=== PATIENT | female | born 1945 | race Caucasian/White ===

== ENCOUNTER 2016-08-04 21:32 | Emergency (ER) | payer OTHER ==
[~2016-08-04] VITALS: Ht 157.5 cm; Wt 45.4 kg
[2016-08-04 22:42] LABS: Basophils # (auto) 0 uL; Basophils % (auto) 0.3 % (0.0-2.0); CONDITION AutoValidated; DEFINITIVE SEE PRINTOUT; Eosinophils # (auto) 0 uL; Eosinophils % (auto) 0.1 % (0.0-7.0); Hemoglobin 14.1 g/dL (12.2-16.2); Lymphocytes # (auto) 1.2 uL; Lymphocytes % (auto) 11.5 % (10.0-50.0); Mean Corpuscular Hemoglobin 36.4 pg (28.0-32.0); Mean Corpuscular Hgb Conc. 35.3 g/dL (32.0-36.0); Mean Corpuscular Volume 103.2 fL (80.0-100.0); Monocytes # (auto) 0.4 uL; Monocytes % (auto) 3.6 % (0.0-12.0); Neutrophils # (auto) 9.1 uL; Neutrophils % (auto) 84.5 % (37.0-80.0); Platelet Count (auto) 265 10^3/uL (140-450); Red Cell Distribution Width 13.4 % (11.6-16.0); White Blood Cell 10.7 10^3/uL (4.4-10.8)
[2016-08-04 23:03] LABS: Albumin 3.4 g/dL (3.4-5.0); BUN/Creatinine Ratio 11.3; Calcium 7.9 mg/dL (8.5-10.1)
[2016-08-04 23:05] LABS: Bilirubin, Total 0.4 mg/dL (0.2-1.0); Total Protein 6.9 g/dL (6.4-8.2)
[2016-08-05 04:54] VITALS: BP 135/76
[2016-08-05] MEDS ORDERED: ACE3T PO (05:21)
== END 2016-08-05 05:37 | disposition home or self-care (01) ==
LOC: ER 21:36
DX: S76.011A Strain of muscle, fascia and tendon of right hip, initial encounter (principal); F17.210 Nicotine dependence, cigarettes, uncomplicated; W01.0XXA Fall on same level from slipping, tripping and stumbling without subsequent striking against object, initial encounter; Y93.89 Activity, other specified; Y92.89 Other specified places as the place of occurrence of the external cause; Y99.8 Other external cause status
CPT/HCPCS: 36415; 73502; 80053; 85025; 93005

== ENCOUNTER → 2017-04-03 | Outpatient (CLI) | payer OTHER ==
[~2017-04-03] MED LIST: ACE3T PO
[2017-04-03 09:20] LABS: Urine WBC None Seen /hpf (0 - 5)
[2017-04-03 09:28] LABS: Basophils # (auto) 0 uL; Eosinophils # (auto) 0 uL; Eosinophils % (auto) 0.5 % (0.0-7.0); Lymphocytes # (auto) 2.3 uL; Monocytes # (auto) 0.8 uL; Nucleated Red Blood Cells % 0.1 %; Platelet Count (auto) 253 10^3/uL (140-450); Red Blood Cells 4.76 10^6/uL (4.0-5.20); Red Cell Distribution Width 14.1 % (11.8-14.3); White Blood Cell 7.9 10^3/uL (4.4-10.8)
[2017-04-03 09:31] LABS: Basophils % (auto) 0.6 % (0.0-2.0); Hematocrit 46.6 % (36.0-46.0); Hemoglobin 16.2 g/dL (12.2-16.2); Lymphocytes % (auto) 28.7 % (10.0-50.0); Mean Corpuscular Hgb Conc. 34.8 g/dL (32.0-36.0); Mean Corpuscular Volume 97.8 fL (80.0-100.0); Neutrophils # (auto) 4.8 uL; Neutrophils % (auto) 60.2 % (37.0-80.0)
[2017-04-03 09:35] LABS: Urine Bacteria FEW /hpf (None Seen); Urine Blood TRACE /uL (Negative); Urine Specific Gravity 1.002 (1.001-1.035)
[2017-04-03 09:58] LABS: Albumin 4.3 g/dL (3.4-5.0); BUN/Creatinine Ratio 11.8; Calcium 9.4 mg/dL (8.5-10.1); Potassium 3.6 mmol/L (3.5-5.1)
[2017-04-03 10:12] LABS: Bilirubin, Total 0.4 mg/dL (0.2-1.0); Total Protein 8.2 g/dL (6.4-8.2)
== END | disposition home or self-care (01) ==
LOC: LAB 08:54
PROVIDERS: ATTEND Nurse Practitioner
DX: E78.5 Hyperlipidemia, unspecified (principal)
CPT/HCPCS: 36415; 80053; 80061; 81001; 82306; 83036; 84443; 85025

== ENCOUNTER 2019-04-22 04:05 | Inpatient (IN) | payer OTHER ==
[~2019-04-22] VITALS: Ht 152.4 cm; Wt 89.4 kg
[2019-04-22] MEDS ORDERED: MORPHINE SULFATE 4 MG/ML SYR/VIAL IV ONE ×2 (05:00→10:00)
[2019-04-22] MEDS ORDERED: ONDANSETRON HCL 4 MG/2 ML VIAL IV ONE ×2 (05:00→10:00)
[2019-04-22 06:38] LABS: Basophils # (auto) 0 10 ^3/uL (0-0.2); Basophils % (auto) 0.4 % (0.0-2.0); Eosinophils # (auto) 0 10 ^3/uL (0-0.8); Eosinophils % (auto) 0.1 % (0.0-7.0); Hematocrit 42.1 % (36.0-46.0); Hemoglobin 14.7 g/dL (12.2-16.2); Lymphocytes # (auto) 0.6 10 ^3/uL (0.4-5.4); Lymphocytes % (auto) 6.6 % (10.0-50.0); Mean Corpuscular Hemoglobin 34.6 pg (28.0-32.0); Mean Corpuscular Hgb Conc. 34.9 g/dL (32.0-36.0); Mean Corpuscular Volume 99.2 fL (80.0-100.0); Monocytes # (auto) 0.6 10 ^3/uL (0-1.3); Monocytes % (auto) 5.8 % (0.0-12.0); Neutrophils # (auto) 8.6 10 ^3/uL (1.6-8.6); Neutrophils % (auto) 87.1 % (37.0-80.0); Platelet Count (auto) 183 10^3/uL (140-450); Red Blood Cells 4.24 10^6/uL (4.0-5.20); Red Cell Distribution Width 13.8 % (11.8-14.3); White Blood Cell 9.9 10^3/uL (4.4-10.8)
[2019-04-22 06:57] LABS: Calcium 8.7 mg/dL (8.5-10.1); Potassium 4.2 mmol/L (3.5-5.1)
[2019-04-22 07:03] LABS: Albumin 3.5 g/dL (3.4-5.0); BUN/Creatinine Ratio 9.8; Bilirubin, Total 0.5 mg/dL (0.2-1.0); Total Protein 7.5 g/dL (6.4-8.2)
[2019-04-22 07:36] LABS: Urine Bacteria FEW /hpf (None Seen); Urine Blood Negative /uL (Negative); Urine Specific Gravity 1.005 (1.001-1.035); Urine WBC 6 /hpf (0 - 5)
[2019-04-22 07:39] LABS: Magnesium 1.9 mg/dL (1.6-2.6)
[2019-04-22 07:49] LABS: INR 0.98 (0.9-1.15); Partial Thromboplastin Time 25.4 sec (23.64-32.05)
[2019-04-22] MEDS ORDERED: SODIUM CHLORIDE 0.9% 1,000 ML IV ONE (07:56)
[2019-04-22] MEDS ORDERED: IOHEXOL 350 MG/ML 100ML IJ ONE (10:14)
[2019-04-22] MEDS ORDERED: cefTRIAXone 1GM/50ML D5W 50 ML IV ONE ×2 (10:15→11:45)
[2019-04-22] MEDS ORDERED: ACETAMINOPHEN 500 MG TAB PO PRN (11:45)
[2019-04-22] MEDS ORDERED: NITROGLYCERIN 0.4 MG SL TAB SL PRN (11:45)
[2019-04-22] MEDS ORDERED: MORPHINE SULF INJ 2 MG/ML SYRINGE 1ML IV PRN ×2 (11:45)
[2019-04-22] MEDS ORDERED: LACTULOSE 20Gm/30ML SOLN PO PRN (11:45)
[2019-04-22] MEDS ORDERED: TEMAZEPAM 15 MG CAP PO PRN (11:45)
[2019-04-22] MEDS: SODIUM CHLORIDE 0.9% 1,000 ML IV SCH ×2 (12:46→22:06)
[2019-04-22 14:09] VITALS: BP 142/69
[2019-04-22 14:17] VITALS: BP 142/69
[2019-04-22] MEDS: MORPHINE SULF INJ 2 MG/ML SYRINGE 1ML IV PRN ×3 (14:47→22:44)
[2019-04-22] MEDS: ONDANSETRON HCL 4 MG/2 ML VIAL IV PRN ×3 (14:48→22:44)
[2019-04-22 17:04] VITALS: BP 157/69
[2019-04-22] MEDS ORDERED: cloNIDine HCL 0.1 MG TAB PO PRN (17:15)
[2019-04-22] MEDS ORDERED: MAGNESIUM OXIDE 400 MG TAB PO ONE (17:15)
[2019-04-22 22:00] VITALS: BP 134/63
[2019-04-22] MEDS: FAMOTIDINE 20 MG TAB PO SCH (22:02)
[2019-04-23] VITALS (7 sets, daily range): BP systolic 99–133; BP diastolic 53–71
[2019-04-23] MEDS: MORPHINE SULF INJ 2 MG/ML SYRINGE 1ML IV PRN ×4 (04:53→22:31)
[2019-04-23] MEDS: ONDANSETRON HCL 4 MG/2 ML VIAL IV PRN (04:53)
[2019-04-23] MEDS: SODIUM CHLORIDE 0.9% 1,000 ML IV SCH ×2 (07:34→17:34)
[2019-04-23] MEDS: cefTRIAXone 1GM/50ML D5W 50 ML IV SCH (09:23)
[2019-04-23] MEDS: LISINOPRIL 20 MG TAB PO SCH (09:24)
[2019-04-23 11:03] LABS: Basophils # (auto) 0 10 ^3/uL (0-0.2); Basophils % (auto) 0.4 % (0.0-2.0); Eosinophils # (auto) 0 10 ^3/uL (0-0.8); Eosinophils % (auto) 0.5 % (0.0-7.0); Hematocrit 41.1 % (36.0-46.0); Lymphocytes # (auto) 0.8 10 ^3/uL (0.4-5.4); Lymphocytes % (auto) 10.7 % (10.0-50.0); Mean Corpuscular Hemoglobin 34.2 pg (28.0-32.0); Mean Corpuscular Hgb Conc. 34.1 g/dL (32.0-36.0); Mean Corpuscular Volume 100.3 fL (80.0-100.0); Monocytes # (auto) 0.5 10 ^3/uL (0-1.3); Monocytes % (auto) 5.8 % (0.0-12.0); Neutrophils # (auto) 6.5 10 ^3/uL (1.6-8.6); Neutrophils % (auto) 82.6 % (37.0-80.0); Platelet Count (auto) 158 10^3/uL (140-450); White Blood Cell 7.9 10^3/uL (4.4-10.8)
[2019-04-23 11:17] LABS: Albumin 2.9 g/dL (3.4-5.0); Calcium 8.8 mg/dL (8.5-10.1); Magnesium 2.2 mg/dL (1.6-2.6); Potassium 3.9 mmol/L (3.5-5.1)
[2019-04-23 11:20] LABS: BUN/Creatinine Ratio 10.9; Bilirubin, Total 0.5 mg/dL (0.2-1.0)
[2019-04-23 11:26] LABS: Free T4 (Free Thyroxine) 1.11 ng/dL (0.89-1.76)
[2019-04-23 11:27] LABS: Folate (Folic Acid) 8.83 ng/mL (5.38-24)
[2019-04-23] MEDS ORDERED: CYANOCOBALAMIN 500 MCG TAB PO ONE (15:00)
[2019-04-23] MEDS: ALBUTEROL SULF 2.5 MG/0.5ML(0.5%) NEB SOLN NEB SCH (19:30)
[2019-04-23] MEDS: IPRATROPIUM BROM 0.5 MG/2.5ML INH SOL NEB SCH (19:30)
[2019-04-23] MEDS: FAMOTIDINE 20 MG TAB PO SCH (22:00)
[2019-04-24] MEDS: SODIUM CHLORIDE 0.9% 1,000 ML IV SCH ×2 (02:23→16:26)
[2019-04-24] MEDS: MORPHINE SULF INJ 2 MG/ML SYRINGE 1ML IV PRN ×2 (04:31→10:06)
[2019-04-24 05:00] VITALS: BP 134/70
[2019-04-24] MEDS: ALBUTEROL SULF 2.5 MG/0.5ML(0.5%) NEB SOLN NEB SCH ×4 (06:29→18:24)
[2019-04-24] MEDS: IPRATROPIUM BROM 0.5 MG/2.5ML INH SOL NEB SCH ×4 (06:29→18:25)
[2019-04-24 07:06] LABS: RPR Non Reactive (Non Reactive)
[2019-04-24 09:00] VITALS: BP 135/74
[2019-04-24] MEDS: cefTRIAXone 1GM/50ML D5W 50 ML IV SCH (09:54)
[2019-04-24] MEDS: CYANOCOBALAMIN 500 MCG TAB PO SCH (09:54)
[2019-04-24] MEDS: LISINOPRIL 20 MG TAB PO SCH (09:55)
[2019-04-24] MEDS ORDERED: ENOXAPARIN SOD 40 MG/0.4 ML SYRINGE SC SCH (10:00)
[2019-04-24 13:00] VITALS: BP 130/72
[2019-04-24 17:00] VITALS: BP 155/84
[2019-04-24] MEDS: NICOTINE 7MG/24HR TOPICAL PATCH TD SCH (17:10)
[2019-04-24 22:00] VITALS: BP 143/82
[2019-04-24] MEDS: FAMOTIDINE 20 MG TAB PO SCH (22:00)
[2019-04-25] MEDS: IPRATROPIUM BROM 0.5 MG/2.5ML INH SOL NEB SCH ×5 (00:12→19:01)
[2019-04-25] MEDS: ALBUTEROL SULF 2.5 MG/0.5ML(0.5%) NEB SOLN NEB SCH ×5 (00:12→19:01)
[2019-04-25] MEDS: SODIUM CHLORIDE 0.9% 1,000 ML IV SCH ×2 (00:43→08:50)
[2019-04-25] MEDS: MORPHINE SULF INJ 2 MG/ML SYRINGE 1ML IV PRN (00:44)
[2019-04-25 02:00] VITALS: BP 150/72
[2019-04-25 05:00] VITALS: BP 143/75
[2019-04-25] MEDS ORDERED: BUPIVACAINE 0.25% INJ 50ML VIAL ONE (07:52)
[2019-04-25] MEDS ORDERED: BUPIVACAINE W/ EPINEPH 0.5% MPF 30ML VIAL IJ ONE (07:52)
[2019-04-25] MEDS ORDERED: TRANEXAMIC ACID 20 ML ONE (07:52)
[2019-04-25 08:00] VITALS: BP 147/78
[2019-04-25] MEDS ORDERED: KETOROLAC TROMETH 30 MG/ML 1ML VIAL ONE (08:13)
[2019-04-25] MEDS ORDERED: MORPHINE SULF(PF) 0.5MG/ML 10ML VIAL ONE (08:13)
[2019-04-25 08:26] VITALS: BP 147/78
[2019-04-25] MEDS ORDERED: VANCOMYCIN HCL 1000 MG VL ONE (08:33)
[2019-04-25] MEDS: cefTRIAXone 1GM/50ML D5W 50 ML IV SCH (08:50)
[2019-04-25] MEDS ORDERED: ceFAZolin 1GM/50ML 100 ML IV ONE (08:53)
[2019-04-25] MEDS: CYANOCOBALAMIN 500 MCG TAB PO SCH (09:07)
[2019-04-25] MEDS: LISINOPRIL 20 MG TAB PO SCH (09:07)
[2019-04-25] MEDS: NICOTINE 7MG/24HR TOPICAL PATCH TD SCH (09:08)
[2019-04-25] MEDS ORDERED: fentaNYL CITRATE 100 MCG/2 ML VL ONE (09:24)
[2019-04-25] MEDS ORDERED: MEPERIDINE HCL (50 MG/ML) 1 ML VIAL ONE (09:25)
[2019-04-25] MEDS ORDERED: MIDAZOLAM HCL 1MG/1ML-2 ML VIAL ONE (09:25)
[2019-04-25] MEDS ORDERED: DexAMETHasone SOD PHOS 10MG/1ML VIAL INJ ONE (09:53)
[2019-04-25] MEDS ORDERED: PROPOFOL 10 MG/ML 20 ML IV ONE (09:59)
[2019-04-25] MEDS ORDERED: HYDROmorphone HCL 2 MG/ML VL IV PRN (10:45)
[2019-04-25] MEDS ORDERED: MORPHINE SULFATE 4 MG/ML SYR/VIAL IV PRN (10:45)
[2019-04-25] MEDS ORDERED: MIDAZOLAM HCL 1MG/1ML-2 ML VIAL IV PRN (10:45)
[2019-04-25] MEDS ORDERED: ONDANSETRON HCL 4 MG/2 ML VIAL IV PRN (10:45)
[2019-04-25] MEDS ORDERED: ePHEDrine SULFATE 50 MG/ML AMP IV PRN (10:45)
[2019-04-25] MEDS ORDERED: LABETALOL HCL 5 MG/ML 4ML SYRINGE IV PRN (10:45)
[2019-04-25] MEDS: LACTATED RINGER'S 1,000 ML IV SCH ×2 (11:08→17:35)
[2019-04-25] MEDS: ceFAZolin 1GM/50ML 50 ML IV SCH ×3 (11:15→23:22)
[2019-04-25] MEDS ORDERED: ALBUTEROL SULF 2.5 MG/0.5ML(0.5%) NEB SOLN NEB ONE (11:45)
[2019-04-25] MEDS ORDERED: IPRATROPIUM BROM 0.5 MG/2.5ML INH SOL NEB ONE (11:45)
[2019-04-25] MEDS: Ensure HIGH Protein Chocolate 8oz Bottle PO SCH ×2 (12:00→17:36)
[2019-04-25] MEDS: SODIUM CHLOR 0.9% PF (SALINE LOCK) 10ML VIAL/SYR IV SCH ×2 (15:30→21:37)
[2019-04-25 17:17] VITALS: BP 119/68
[2019-04-25] MEDS: FAMOTIDINE 20 MG TAB PO SCH (21:37)
[2019-04-25 22:00] VITALS: BP 131/74
[2019-04-26] VITALS (7 sets, daily range): BP systolic 112–164; BP diastolic 61–84
[2019-04-26] MEDS: IPRATROPIUM BROM 0.5 MG/2.5ML INH SOL NEB SCH ×4 (01:01→18:39)
[2019-04-26] MEDS: ALBUTEROL SULF 2.5 MG/0.5ML(0.5%) NEB SOLN NEB SCH ×4 (01:01→18:39)
[2019-04-26 06:09] LABS: Hemoglobin 12.1 g/dL (12.2-16.2)
[2019-04-26 06:17] LABS: Albumin 2.5 g/dL (3.4-5.0); Calcium 8.8 mg/dL (8.5-10.1); Potassium 3.5 mmol/L (3.5-5.1)
[2019-04-26 06:21] LABS: Bilirubin, Total 0.3 mg/dL (0.2-1.0); Total Protein 6.2 g/dL (6.4-8.2)
[2019-04-26] MEDS: SODIUM CHLOR 0.9% PF (SALINE LOCK) 10ML VIAL/SYR IV SCH ×3 (06:21→22:36)
[2019-04-26] MEDS: Ensure HIGH Protein Chocolate 8oz Bottle PO SCH ×3 (08:45→17:44)
[2019-04-26] MEDS: cefTRIAXone 1GM/50ML D5W 50 ML IV SCH (08:45)
[2019-04-26] MEDS: MORPHINE SULF INJ 2 MG/ML SYRINGE 1ML IV PRN ×4 (08:46→22:37)
[2019-04-26] MEDS: ENOXAPARIN SOD 40 MG/0.4 ML SYRINGE SC SCH (10:06)
[2019-04-26] MEDS: LISINOPRIL 20 MG TAB PO SCH (10:06)
[2019-04-26] MEDS: CYANOCOBALAMIN 500 MCG TAB PO SCH (10:07)
[2019-04-26] MEDS: NICOTINE 7MG/24HR TOPICAL PATCH TD SCH (10:08)
[2019-04-26] MEDS: FAMOTIDINE 20 MG TAB PO SCH (22:36)
[2019-04-27] VITALS (7 sets, daily range): BP systolic 123–147; BP diastolic 57–83
[2019-04-27] MEDS: IPRATROPIUM BROM 0.5 MG/2.5ML INH SOL NEB SCH ×4 (00:15→18:18)
[2019-04-27] MEDS: ALBUTEROL SULF 2.5 MG/0.5ML(0.5%) NEB SOLN NEB SCH ×4 (00:15→18:18)
[2019-04-27] MEDS: SODIUM CHLOR 0.9% PF (SALINE LOCK) 10ML VIAL/SYR IV SCH ×3 (05:44→21:48)
[2019-04-27 07:44] LABS: Hematocrit 37.1 % (36.0-46.0); Hemoglobin 12.8 g/dL (12.2-16.2)
[2019-04-27] MEDS: Ensure HIGH Protein Chocolate 8oz Bottle PO SCH ×3 (08:15→17:37)
[2019-04-27] MEDS: cefTRIAXone 1GM/50ML D5W 50 ML IV SCH (08:34)
[2019-04-27] MEDS: CYANOCOBALAMIN 500 MCG TAB PO SCH (09:25)
[2019-04-27] MEDS: LISINOPRIL 20 MG TAB PO SCH (09:26)
[2019-04-27] MEDS: ENOXAPARIN SOD 40 MG/0.4 ML SYRINGE SC SCH (09:27)
[2019-04-27] MEDS: NICOTINE 7MG/24HR TOPICAL PATCH TD SCH (09:32)
[2019-04-27] MEDS: MORPHINE SULF INJ 2 MG/ML SYRINGE 1ML IV PRN (09:32)
[2019-04-27] MEDS: CHOLECALCIFEROL (VITD3) 1,000IU=25mCg TAB PO SCH (18:26)
[2019-04-27] MEDS: FAMOTIDINE 20 MG TAB PO SCH (21:48)
[2019-04-28 05:01] VITALS: BP 113/68
[2019-04-28] MEDS: IPRATROPIUM BROM 0.5 MG/2.5ML INH SOL NEB SCH ×6 (06:00→23:47)
[2019-04-28] MEDS: ALBUTEROL SULF 2.5 MG/0.5ML(0.5%) NEB SOLN NEB SCH ×6 (06:00→23:47)
[2019-04-28] MEDS: SODIUM CHLOR 0.9% PF (SALINE LOCK) 10ML VIAL/SYR IV SCH ×3 (06:06→22:57)
[2019-04-28 06:13] LABS: Hematocrit 33.9 % (36.0-46.0); Hemoglobin 11.8 g/dL (12.2-16.2)
[2019-04-28 08:16] VITALS: BP 138/69
[2019-04-28 09:00] VITALS: BP 138/69
[2019-04-28] MEDS: cefTRIAXone 1GM/50ML D5W 50 ML IV SCH (09:16)
[2019-04-28] MEDS: CHOLECALCIFEROL (VITD3) 1,000IU=25mCg TAB PO SCH (09:16)
[2019-04-28] MEDS: CYANOCOBALAMIN 500 MCG TAB PO SCH (09:16)
[2019-04-28] MEDS: LISINOPRIL 20 MG TAB PO SCH (09:17)
[2019-04-28] MEDS: ENOXAPARIN SOD 40 MG/0.4 ML SYRINGE SC SCH (09:17)
[2019-04-28] MEDS: Ensure HIGH Protein Chocolate 8oz Bottle PO SCH ×3 (09:18→17:53)
[2019-04-28] MEDS: NICOTINE 7MG/24HR TOPICAL PATCH TD SCH (09:22)
[2019-04-28 12:51] VITALS: BP 143/77
[2019-04-28 17:00] VITALS: BP 146/77
[2019-04-28 21:39] VITALS: BP 130/70
[2019-04-28] MEDS: FAMOTIDINE 20 MG TAB PO SCH (22:56)
[2019-04-29 04:52] VITALS: BP 148/72
[2019-04-29] MEDS: SODIUM CHLOR 0.9% PF (SALINE LOCK) 10ML VIAL/SYR IV SCH (06:17)
[2019-04-29] MEDS: IPRATROPIUM BROM 0.5 MG/2.5ML INH SOL NEB SCH ×2 (07:22→13:29)
[2019-04-29] MEDS: ALBUTEROL SULF 2.5 MG/0.5ML(0.5%) NEB SOLN NEB SCH ×2 (07:22→13:29)
[2019-04-29 08:38] VITALS: BP 148/72
[2019-04-29 09:00] VITALS: BP 142/72
[2019-04-29] MEDS: cefTRIAXone 1GM/50ML D5W 50 ML IV SCH (09:00)
[2019-04-29] MEDS: CYANOCOBALAMIN 500 MCG TAB PO SCH (10:13)
[2019-04-29] MEDS: ENOXAPARIN SOD 40 MG/0.4 ML SYRINGE SC SCH (10:13)
[2019-04-29] MEDS: CHOLECALCIFEROL (VITD3) 1,000IU=25mCg TAB PO SCH (10:13)
[2019-04-29] MEDS: LISINOPRIL 20 MG TAB PO SCH (10:14)
[2019-04-29] MEDS: NICOTINE 7MG/24HR TOPICAL PATCH TD SCH (10:14)
[2019-04-29 13:00] VITALS: BP 133/49
[2019-04-29 14:38] VITALS: BP 142/72
== END 2019-04-29 15:50 | disposition home health service (06) | DRG 470 ==
LOC: EDBD 04:05 → ER 04:11 → TELE 04:12 → TELE-WESTW 14:57
PROVIDERS: ADMIT Internal Medicine; ATTEND Internal Medicine
PROC: 0SRR0JZ Replacement of Right Hip Joint, Femoral Surface with Synthetic Substitute, Open Approach (ICD-10-PCS; principal; 2019-04-25 09:18)
DX: S72.091A Other fracture of head and neck of right femur, initial encounter for closed fracture (principal); E87.1 Hypo-osmolality and hyponatremia; N39.0 Urinary tract infection, site not specified; W01.0XXA Fall on same level from slipping, tripping and stumbling without subsequent striking against object, initial encounter; J43.9 Emphysema, unspecified; I10 Essential (primary) hypertension; F17.210 Nicotine dependence, cigarettes, uncomplicated; Y93.01 Activity, walking, marching and hiking; M81.0 Age-related osteoporosis without current pathological fracture; Z86.011 Personal history of benign neoplasm of the brain; Z90.710 Acquired absence of both cervix and uterus; Z88.8 Allergy status to other drugs, medicaments and biological substances; Y92.098 Other place in other non-institutional residence as the place of occurrence of the external cause; Y99.8 Other external cause status
CPT/HCPCS: 36415; 70450; 71045; 71275; 72170; 72192; 73501; 73502; 80053; 81001; 82607; 82746; 83036; 83735; 84439; 84443; 84484; 85014; 85018; 85025; 85379; 85610; 85730; 86592; 86850; 86900; 86901; 87086; 93005; 93306; 94640; 96365; 96375; 96376; 97116; 97163; 97530; A4565; C1776; G0378; J0690; J0696; J1100; J1885; J2250; J2405; J2704; J3490

== ENCOUNTER 2019-10-21 10:58 | Emergency (ER) | payer OTHER ==
[~2019-10-21] VITALS: Ht 157.5 cm; Wt 43.5 kg
[2019-10-21 11:24] VITALS: BP 104/47
== END 2019-10-21 12:15 | disposition home or self-care (01) ==
LOC: ER 10:58
DX: Z48.01 Encounter for change or removal of surgical wound dressing (principal); F17.210 Nicotine dependence, cigarettes, uncomplicated

== ENCOUNTER → 2020-05-26 | Outpatient (CLI) | payer OTHER ==
[2020-05-26 11:41] LABS: Urine Bacteria MOD /hpf (None Seen); Urine Blood TRACE /uL (Negative); Urine Mucus FEW (None Seen); Urine Specific Gravity 1.007 (1.001-1.035); Urine WBC 104 /hpf (0 - 5); Urine WBC Clumps PRESENT /hpf (None Seen)
[2020-05-26 12:00] LABS: INR 0.98 (0.9-1.15); Partial Thromboplastin Time 26.8 sec (23.0-31.2)
[2020-05-26 12:08] LABS: Basophils # (auto) 0 10 ^3/uL (0-0.2); Basophils % (auto) 0.4 % (0.0-2.0); Eosinophils # (auto) 0 10 ^3/uL (0-0.8); Eosinophils % (auto) 0.1 % (0.0-7.0); Hemoglobin 13.2 g/dL (12.2-16.2); Lymphocytes # (auto) 1.9 10 ^3/uL (0.4-5.4); Nucleated Red Blood Cells % 0.1 %; Platelet Count (auto) 392 10^3/uL (140-450); Red Blood Cells 3.77 10^6/uL (4.0-5.20)
[2020-05-26 12:11] LABS: Hematocrit 37.8 % (36.0-46.0); Lymphocytes % (auto) 22.8 % (10.0-50.0); Mean Corpuscular Hemoglobin 35.2 pg (28.0-32.0); Mean Corpuscular Hgb Conc. 35.1 g/dL (32.0-36.0); Mean Corpuscular Volume 100.3 fL (80.0-100.0); Monocytes # (auto) 0.6 10 ^3/uL (0-1.3); Monocytes % (auto) 7.5 % (0.0-12.0); Neutrophils # (auto) 5.7 10 ^3/uL (1.6-8.6); Neutrophils % (auto) 69.2 % (37.0-80.0); White Blood Cell 8.3 10^3/uL (4.4-10.8)
[2020-05-26 12:26] LABS: Albumin 3.1 g/dL (3.4-5.0); Calcium 9.3 mg/dL (8.5-10.1)
[2020-05-26 12:31] LABS: BUN/Creatinine Ratio 10.9; Bilirubin, Total 0.3 mg/dL (0.2-1.0); Total Protein 7.8 g/dL (6.4-8.2)
== END | disposition home or self-care (01) ==
LOC: LAB 11:08
PROVIDERS: ATTEND Internal Medicine
DX: I10 Essential (primary) hypertension (principal); E78.5 Hyperlipidemia, unspecified; J44.9 Chronic obstructive pulmonary disease, unspecified; F33.1 Major depressive disorder, recurrent, moderate
CPT/HCPCS: 36415; 80053; 80061; 81001; 82607; 83036; 84443; 85025; 85610; 85730

== ENCOUNTER → 2020-08-15 | Outpatient (CLI) | payer OTHER | END | disposition home or self-care (01) | LOC: LAB 15:52 | PROVIDERS: ATTEND Internal Medicine | DX: E55.9 Vitamin D deficiency, unspecified (principal) | CPT/HCPCS: 82274; 82306 ==

== ENCOUNTER → 2020-11-09 | Outpatient (CLI) | payer OTHER ==
[2020-11-09 10:30] LABS: Basophils # (auto) 0.1 10 ^3/uL (0-0.2); Eosinophils # (auto) 0 10 ^3/uL (0-0.8); Lymphocytes # (auto) 1.3 10 ^3/uL (0.4-5.4); Neutrophils # (auto) 7.9 10 ^3/uL (1.6-8.6); Red Cell Distribution Width 15.7 % (11.8-14.3)
[2020-11-09 10:31] LABS: Basophils % (auto) 0.6 % (0.0-2.0); Eosinophils % (auto) 0.3 % (0.0-7.0); Lymphocytes % (auto) 13.2 % (10.0-50.0); Mean Corpuscular Hemoglobin 31.3 pg (28.0-32.0); Mean Corpuscular Hgb Conc. 33.3 g/dL (32.0-36.0); Mean Corpuscular Volume 94.2 fL (80.0-100.0); Monocytes # (auto) 0.6 10 ^3/uL (0-1.3); Monocytes % (auto) 6.1 % (0.0-12.0); Neutrophils % (auto) 79.8 % (37.0-80.0); White Blood Cell 9.8 10^3/uL (4.4-10.8)
[2020-11-09 11:05] LABS: Albumin 2.9 g/dL (3.4-5.0); BUN/Creatinine Ratio 23.5; Calcium 9.2 mg/dL (8.5-10.1)
[2020-11-09 11:08] LABS: Bilirubin, Total 0.2 mg/dL (0.2-1.0); Total Protein 7.8 g/dL (6.4-8.2)
== END | disposition home or self-care (01) ==
LOC: LAB 10:12
PROVIDERS: ATTEND Internal Medicine
DX: Z01.812 Encounter for preprocedural laboratory examination (principal)
CPT/HCPCS: 36415; 80053; 85025

== ENCOUNTER → 2020-11-13 | Outpatient (CLI) | payer OTHER ==
[2020-11-13 09:42] LABS: Urine Bacteria NONE SEEN /hpf (None Seen); Urine Blood Negative /uL (Negative); Urine Hyaline Cast FEW /lpf (0 - 2); Urine Mucus FEW (None Seen); Urine Specific Gravity 1.018 (1.001-1.035); Urine WBC 60 /hpf (0 - 5)
== END | disposition home or self-care (01) ==
LOC: LAB 09:31
PROVIDERS: ATTEND Internal Medicine
DX: Z01.812 Encounter for preprocedural laboratory examination (principal)
CPT/HCPCS: 81001

== ENCOUNTER → 2021-02-05 | Outpatient (CLI) | payer OTHER ==
[2021-02-05 12:02] LABS: Basophils # (auto) 0.1 10 ^3/uL (0-0.2); Basophils % (auto) 1.1 % (0.0-2.0); Eosinophils # (auto) 0.1 10 ^3/uL (0-0.8); Eosinophils % (auto) 0.8 % (0.0-7.0); Lymphocytes % (auto) 21.4 % (10.0-50.0); Mean Corpuscular Hemoglobin 28.6 pg (28.0-32.0); Mean Corpuscular Hgb Conc. 33.4 g/dL (32.0-36.0); Mean Corpuscular Volume 85.6 fL (80.0-100.0); Monocytes # (auto) 0.5 10 ^3/uL (0-1.3); Monocytes % (auto) 5.5 % (0.0-12.0); Neutrophils # (auto) 6.8 10 ^3/uL (1.6-8.6); Neutrophils % (auto) 71.2 % (37.0-80.0); Red Blood Cells 3.85 10^6/uL (4.0-5.20); Red Cell Distribution Width 16.8 % (11.8-14.3); White Blood Cell 9.5 10^3/uL (4.4-10.8)
[2021-02-05 12:22] LABS: Partial Thromboplastin Time 25.1 sec (23.6-33.0)
[2021-02-05 12:45] LABS: Albumin 3.2 g/dL (3.4-5.0); BUN/Creatinine Ratio 25.8; Calcium 9.2 mg/dL (8.5-10.1); Potassium 4.3 mmol/L (3.5-5.1)
[2021-02-05 12:51] LABS: Bilirubin, Total 0.3 mg/dL (0.2-1.0); Total Protein 7.6 g/dL (6.4-8.2)
== END | disposition home or self-care (01) ==
LOC: LAB 11:49
PROVIDERS: ATTEND Specialist
DX: H25.12 Age-related nuclear cataract, left eye (principal); Z79.01 Long term (current) use of anticoagulants
CPT/HCPCS: 36415; 80053; 85025; 85610; 85730

== ENCOUNTER → 2021-07-04 | Outpatient (CLI) | payer OTHER ==
[2021-07-04 11:16] LABS: Albumin 3.4 g/dL (3.4-5.0); Calcium 9.4 mg/dL (8.5-10.1); Potassium 4.5 mmol/L (3.5-5.1)
[2021-07-04 11:21] LABS: BUN/Creatinine Ratio 22.9; Bilirubin, Total 0.2 mg/dL (0.2-1.0)
[2021-07-04 11:26] LABS: Thyroid Stimulating Hormone 2.4 uIU/mL (0.358-3.74)
[2021-07-04 11:50] LABS: Free T4 (Free Thyroxine) 1.14 ng/dL (0.89-1.76)
[2021-07-04 11:51] LABS: Carcinoembryonic Antigen 2.89 ng/mL (<5.0 OR =)
[2021-07-04 11:52] LABS: Folate (Folic Acid) > 24.00 ng/mL (5.38-24)
== END | disposition home or self-care (01) ==
LOC: LAB 09:52
PROVIDERS: ATTEND Internal Medicine
DX: F32.0 Major depressive disorder, single episode, mild (principal); Z22.0 Carrier of typhoid
CPT/HCPCS: 36415; 80053; 80061; 82105; 82274; 82378; 82607; 82746; 83615; 84439; 84443; 86301; 86304

== ENCOUNTER → 2021-11-28 | Outpatient (CLI) | payer OTHER ==
[2021-11-28 15:11] LABS: Basophils # (auto) 0.1 10 ^3/uL (0-0.2); Eosinophils # (auto) 0.1 10 ^3/uL (0-0.8); Eosinophils % (auto) 0.4 % (0.0-7.0); Hemoglobin 11.8 g/dL (12.2-16.2); Neutrophils # (auto) 9.7 10 ^3/uL (1.6-8.6)
[2021-11-28 15:13] LABS: Basophils % (auto) 0.8 % (0.0-2.0); Hematocrit 36.2 % (36.0-46.0); Lymphocytes # (auto) 1.9 10 ^3/uL (0.4-5.4); Lymphocytes % (auto) 15.4 % (10.0-50.0); Mean Corpuscular Hemoglobin 29.9 pg (28.0-32.0); Mean Corpuscular Hgb Conc. 32.5 g/dL (32.0-36.0); Monocytes # (auto) 0.7 10 ^3/uL (0-1.3); Monocytes % (auto) 5.4 % (0.0-12.0); Nucleated Red Blood Cells % 0.1 %; Red Blood Cells 3.94 10^6/uL (4.0-5.20); Red Cell Distribution Width 18.6 % (11.8-14.3); White Blood Cell 12.5 10^3/uL (4.4-10.8)
[2021-11-28 16:07] LABS: Albumin 3.5 g/dL (3.4-5.0); Calcium 9.2 mg/dL (8.5-10.1); Potassium 4.6 mmol/L (3.5-5.1)
[2021-11-28 16:15] LABS: BUN/Creatinine Ratio 19.4; Bilirubin, Total 0.2 mg/dL (0.2-1.0); CRP High Sensitivity 1.42 mg/dL (< 0.3); Total Protein 7.6 g/dL (6.4-8.2)
== END | disposition home or self-care (01) ==
LOC: LAB 14:46
DX: J43.2 Centrilobular emphysema (principal); R63.4 Abnormal weight loss; T84.010A Broken internal right hip prosthesis, initial encounter; X58.XXXA Exposure to other specified factors, initial encounter; Y93.89 Activity, other specified; Y92.89 Other specified places as the place of occurrence of the external cause; Y99.8 Other external cause status
CPT/HCPCS: 36415; 80053; 83036; 85025; 85652; 86141

== ENCOUNTER → 2022-05-01 | Outpatient (CLI) | payer OTHER ==
[~2022-05-01] MED LIST changes: -ACE3T PO; +BUPIVACAINE HCL 0.25% P/F 10 ML VIAL ONE; +IOHEXOL 300 MG/ML 100ML BOTTLE IJ ONE; +LIDOCAINE 2% (LOCAL ANESTH.) PF 5ml SDV ONE; +methylPREDNISolone ACETATE 80 MG/ML VL ONE
== END | disposition home or self-care (01) ==
LOC: XYW 09:59
PROVIDERS: ATTEND Orthopaedic Surgery Adult Reconstructive Orthopaedic Surgery
DX: M25.511 Pain in right shoulder (principal); F17.210 Nicotine dependence, cigarettes, uncomplicated; Z90.710 Acquired absence of both cervix and uterus; Z88.8 Allergy status to other drugs, medicaments and biological substances
CPT/HCPCS: 20610; 73020; 76000; J1040; J2001; J3490; Q9967

== ENCOUNTER → 2022-05-07 | Outpatient (CLI) | payer OTHER ==
[2022-05-07 11:20] LABS: Eosinophils # (auto) 0.1 10 ^3/uL (0-0.8)
[2022-05-07 11:22] LABS: Basophils # (auto) 0.1 10 ^3/uL (0-0.2); Basophils % (auto) 0.7 % (0.0-2.0); Eosinophils % (auto) 0.6 % (0.0-7.0); Hematocrit 35.8 % (36.0-46.0); Lymphocytes % (auto) 16.7 % (10.0-50.0); Mean Corpuscular Hemoglobin 30.2 pg (28.0-32.0); Mean Corpuscular Hgb Conc. 33.4 g/dL (32.0-36.0); Mean Corpuscular Volume 90.5 fL (80.0-100.0); Monocytes # (auto) 0.7 10 ^3/uL (0-1.3); Monocytes % (auto) 6.1 % (0.0-12.0); Neutrophils # (auto) 9.1 10 ^3/uL (1.6-8.6); Neutrophils % (auto) 75.9 % (37.0-80.0); Red Blood Cells 3.95 10^6/uL (4.0-5.20); Red Cell Distribution Width 16.9 % (11.8-14.3); White Blood Cell 12.1 10^3/uL (4.4-10.8)
[2022-05-07 11:53] LABS: Albumin 3.7 g/dL (3.4-5.0); Calcium 9.4 mg/dL (8.5-10.1)
[2022-05-07 11:59] LABS: BUN/Creatinine Ratio 26.9 (10.0-20.0); Bilirubin, Total 0.2 mg/dL (0.2-1.0); Total Protein 8.4 g/dL (6.4-8.2)
== END | disposition home or self-care (01) ==
LOC: LAB 10:51
PROVIDERS: ATTEND Internal Medicine
DX: R73.03 Prediabetes (principal); E55.9 Vitamin D deficiency, unspecified
CPT/HCPCS: 36415; 80053; 80061; 82306; 83036; 84443; 85025

== ENCOUNTER → 2022-05-13 | Outpatient (CLI) | payer OTHER | END | disposition home or self-care (01) | LOC: LAB 14:49 | PROVIDERS: ATTEND Internal Medicine | DX: Z12.11 Encounter for screening for malignant neoplasm of colon (principal) | CPT/HCPCS: 82274 ==

== ENCOUNTER → 2022-08-21 | Outpatient (CLI) | payer OTHER ==
[~2022-08-21] MED LIST changes: -IOHEXOL 300 MG/ML 100ML BOTTLE IJ ONE; -LIDOCAINE 2% (LOCAL ANESTH.) PF 5ml SDV ONE; +LIDOCAINE 2%HCL (LOCAL ANESTH.) INJ 10ml MDV ONE
== END | disposition home or self-care (01) ==
LOC: XYW 09:41
PROVIDERS: ATTEND Orthopaedic Surgery Adult Reconstructive Orthopaedic Surgery
DX: S42.201D Unspecified fracture of upper end of right humerus, subsequent encounter for fracture with routine healing (principal); X58.XXXD Exposure to other specified factors, subsequent encounter
CPT/HCPCS: 20610; 73020; 76000; J1040; J2001; J3490; Q9967

== ENCOUNTER 2023-02-09 11:04 | Inpatient (IN) | payer OTHER ==
[~2023-02-09] VITALS: Ht 165.1 cm; Wt 13.0 kg
[2023-02-09] MEDS ORDERED: SODIUM CHLORIDE 0.9% 1,000 ML IV ONE (16:00)
[2023-02-09] MEDS ORDERED: ONDANSETRON HCL 4 MG/2 ML VIAL IV ONE ×2 (16:00→22:15)
[2023-02-09] MEDS ORDERED: HYDROmorphone HCL 2 MG/ML VL/or syr IV ONE (16:00)
[2023-02-09 17:29] LABS: Basophils # (auto) 0 10 ^3/uL (0-0.2); Eosinophils # (auto) 0 10 ^3/uL (0-0.8); Hematocrit 34.3 % (36.0-46.0); Hemoglobin 11.5 g/dL (12.2-16.2); Lymphocytes # (auto) 0.7 10 ^3/uL (0.4-5.4); Lymphocytes % (auto) 6.1 % (10.0-50.0); Monocytes # (auto) 0.3 10 ^3/uL (0-1.3)
[2023-02-09 17:33] LABS: Basophils % (auto) 0.1 % (0.0-2.0); Mean Corpuscular Hgb Conc. 33.4 g/dL (32.0-36.0); Mean Corpuscular Volume 101.9 fL (80.0-100.0); Monocytes % (auto) 2.5 % (0.0-12.0); Neutrophils # (auto) 10.2 10 ^3/uL (1.6-8.6); Neutrophils % (auto) 91.3 % (37.0-80.0); Red Blood Cells 3.37 10^6/uL (4.0-5.20); Red Cell Distribution Width 16.2 % (11.8-14.3); White Blood Cell 11.2 10^3/uL (4.4-10.8)
[2023-02-09 17:47] LABS: Chloride 104 mmol/L (98-107); Potassium 3.9 mmol/L (3.5-5.1); Sodium 130 mmol/L (136-145)
[2023-02-09 17:48] LABS: Anion Gap 9 (5-15); Carbon Dioxide 17 mmol/L (20-30)
[2023-02-09 17:49] LABS: Calcium 9.1 mg/dL (8.7-10.4)
[2023-02-09 17:51] LABS: INR 0.92 (0.9-1.15); Partial Thromboplastin Time 25.1 SEC (24.5-34.5); Prothrombin Time 9.7 sec (9.3-11.8)
[2023-02-09 17:53] LABS: BUN/Creatinine Ratio 32.3 (10.0-20.0); Blood Urea Nitrogen 32 mg/dL (9-23); Glucose 89 mg/dL (74-106)
[2023-02-09 17:54] LABS: Magnesium 1.9 mg/dL (1.6-2.6)
[2023-02-09 19:20] VITALS: PULSE 80; RESP 17; O2SAT 96
[2023-02-09 19:45] VITALS: PULSE 82; RESP 12; O2SAT 97
[2023-02-09] MEDS ORDERED: ONDANSETRON HCL 4 MG/2 ML VIAL IV PRN (22:15)
[2023-02-09] MEDS ORDERED: ACETAMINOPHEN 325 MG TAB PO PRN (22:15)
[2023-02-09] MEDS ORDERED: MORPHINE SULFATE INJ 2 MG/ml SYRG IV ONE (22:15)
[2023-02-09] MEDS ORDERED: LACTATED RINGER'S 1,000 ML IV ONE (22:15)
[2023-02-10] VITALS (7 sets, daily range): BP systolic 121–154; BP diastolic 58–74; PULSE 86–105; RESP 14–20; TEMP 36.7; O2SAT 92–97
[2023-02-10] MEDS: AZITHROMYCIN 500MG/ 250ML 250 ML IV SCH ×2 (00:25→22:05)
[2023-02-10] MEDS: cefTRIAXone 1GM/50ML D5W 50 ML IV SCH ×2 (00:25→22:04)
[2023-02-10] MEDS: SODIUM CHLOR 0.9% PF (SALINE LOCK) 10ML VIAL/SYR IV SCH ×3 (05:17→22:04)
[2023-02-10] MEDS: HYDROcodone-ACET 5/325MG TAB PO PRN ×2 (09:33→22:09)
[2023-02-10] MEDS ORDERED: NITROGLYCERIN 0.4 MG SL TAB SL PRN (09:45)
[2023-02-10] MEDS ORDERED: MORPHINE SULFATE INJ 2 MG/ml SYRG IV PRN (09:45)
[2023-02-10] MEDS: NICOTINE 14 MG/24HR TOPICAL PATCH TD SCH ×2 (10:00→16:17)
[2023-02-10] MEDS ORDERED: FAMOTIDINE (10MG/ML) 2ML VL IV SCH (10:00)
[2023-02-10 11:40] LABS: % Iron Saturation 3.2 % (15-50)
[2023-02-10] MEDS: SODIUM CHLORIDE 0.9% 1,000 ML IV SCH (18:00)
[2023-02-11 05:00] VITALS: BP 124/57; PULSE 101; RESP 16; TEMP 98.4; O2SAT 94
[2023-02-11] MEDS: SODIUM CHLOR 0.9% PF (SALINE LOCK) 10ML VIAL/SYR IV SCH ×3 (06:53→22:00)
[2023-02-11 07:31] LABS: Basophils # (auto) 0 10 ^3/uL (0-0.2); Basophils % (auto) 0.1 % (0.0-2.0); Eosinophils # (auto) 0 10 ^3/uL (0-0.8); Monocytes % (auto) 5.9 % (0.0-12.0); Red Blood Cells 2.56 10^6/uL (4.0-5.20); Red Cell Distribution Width 16.6 % (11.8-14.3)
[2023-02-11 07:34] LABS: Eosinophils % (auto) 0.1 % (0.0-7.0); Hematocrit 26.8 % (36.0-46.0); Hemoglobin 8.8 g/dL (12.2-16.2); Lymphocytes % (auto) 7.3 % (10.0-50.0); Mean Corpuscular Hemoglobin 34.5 pg (28.0-32.0); Mean Corpuscular Hgb Conc. 32.9 g/dL (32.0-36.0); Monocytes # (auto) 0.8 10 ^3/uL (0-1.3); Neutrophils # (auto) 12.4 10 ^3/uL (1.6-8.6); Neutrophils % (auto) 86.6 % (37.0-80.0); White Blood Cell 14.3 10^3/uL (4.4-10.8)
[2023-02-11 07:40] LABS: Chloride 105 mmol/L (98-107); Potassium 3.4 mmol/L (3.5-5.1); Sodium 134 mmol/L (136-145)
[2023-02-11 07:41] LABS: Anion Gap 10 (5-15); Calcium 9.2 mg/dL (8.5-10.1); Carbon Dioxide 19 mmol/L (20-30)
[2023-02-11] MEDS ORDERED: ERGOCALCIFEROL 50,000 UNIT(1.25MG) CAP PO SCH (07:45)
[2023-02-11 07:46] LABS: BUN/Creatinine Ratio 59.5 (10.0-20.0); Blood Urea Nitrogen 25 mg/dL (9-23); Glucose 91 mg/dL (74-106)
[2023-02-11 08:06] LABS: Urine Bacteria FEW /hpf (None Seen); Urine Blood TRACE /uL (Negative); Urine Clarity Clear (Clear); Urine Color Yellow (Yellow); Urine Hyaline Cast FEW /lpf (0 - 2); Urine Protein, UAD 1+ (Negative); Urine Specific Gravity 1.018 (1.001-1.035); Urine Urobilinogen Normal (Negative); Urine WBC 2 /hpf (0 - 5)
[2023-02-11 08:20] LABS: Sodium Urine < 10 mmol/L (40-220)
[2023-02-11 08:24] LABS: Protein, Urine 102.8 mg/dL (0.0-11.9)
[2023-02-11 08:27] LABS: Creatinine, Urine 56.83 mg/dL (30.0-125.0); Urine Protein/Creatinine Ratio 1.81
[2023-02-11 08:36] VITALS: BP 148/77; PULSE 89; RESP 15; TEMP 98; O2SAT 95
[2023-02-11] MEDS: NICOTINE 14 MG/24HR TOPICAL PATCH TD SCH (10:11)
[2023-02-11] MEDS: FERROUS SULFATE 325mg EC TAB PO SCH ×3 (10:11→18:20)
[2023-02-11] MEDS: HYDROcodone-ACET 5/325MG TAB PO PRN ×3 (10:14→21:28)
[2023-02-11] MEDS: SODIUM CHLORIDE 0.9% 1,000 ML IV SCH (10:16)
[2023-02-11] MEDS ORDERED: POTASSIUM CHL 20 Meq TABLET PO ONE (11:45)
[2023-02-11] MEDS: SODIUM FERR GLUC 62.5MG/5ML 125 MG in SODIUM CHL 0.9% 100 ML IV SCH (12:20)
[2023-02-11 12:35] VITALS: BP 133/65; PULSE 89; RESP 18; TEMP 98; O2SAT 98
[2023-02-11 13:17] LABS: Triglycerides 127 mg/dL (< 150)
[2023-02-11 13:18] LABS: LDL Cholesterol 75 mg/dL (< 100)
[2023-02-11 13:19] LABS: Cholesterol 140 mg/dL (< 200); HDL Cholesterol 43 mg/dL (40-59)
[2023-02-11 16:58] VITALS: BP 119/62; PULSE 80; RESP 18; TEMP 98; O2SAT 92
[2023-02-11 20:00] VITALS: BP 152/71; PULSE 82; PULSE 92; RESP 19; TEMP 97.6; O2SAT 100
[2023-02-11] MEDS: cefTRIAXone 1GM/50ML D5W 50 ML IV SCH (21:22)
[2023-02-11] MEDS ORDERED: MELATONIN 5 MG TAB PO SCH (22:00)
[2023-02-12] MEDS: AZITHROMYCIN 500MG/ 250ML 250 ML IV SCH (00:47)
[2023-02-12] MEDS: HYDROmorphone HCL 2 MG/ML VL/or syr IV PRN ×2 (01:11→10:16)
[2023-02-12 05:00] VITALS: BP 144/76; PULSE 97; RESP 16; TEMP 97.7; O2SAT 98
[2023-02-12 06:57] LABS: Anion Gap 7 (5-15); Carbon Dioxide 22 mmol/L (20-30); Chloride 106 mmol/L (98-107); Potassium 3.6 mmol/L (3.5-5.1); Sodium 135 mmol/L (136-145)
[2023-02-12 06:58] LABS: Calcium 9.1 mg/dL (8.5-10.1)
[2023-02-12] MEDS: SODIUM CHLOR 0.9% PF (SALINE LOCK) 10ML VIAL/SYR IV SCH ×2 (07:00→14:00)
[2023-02-12 07:02] LABS: Basophils # (auto) 0 10 ^3/uL (0-0.2); Eosinophils # (auto) 0 10 ^3/uL (0-0.8); Hemoglobin 8.4 g/dL (12.2-16.2); Monocytes # (auto) 0.9 10 ^3/uL (0-1.3); Nucleated Red Blood Cells % 0.1 %
[2023-02-12 07:03] LABS: BUN/Creatinine Ratio 37.8 (10.0-20.0); Blood Urea Nitrogen 17 mg/dL (9-23); Glucose 77 mg/dL (74-106)
[2023-02-12 07:04] LABS: Basophils % (auto) 0.1 % (0.0-2.0); Eosinophils % (auto) 0.2 % (0.0-7.0); Hematocrit 24.4 % (36.0-46.0); Lymphocytes % (auto) 6.2 % (10.0-50.0); Mean Corpuscular Hemoglobin 34.5 pg (28.0-32.0); Mean Corpuscular Hgb Conc. 34.3 g/dL (32.0-36.0); Mean Corpuscular Volume 100.5 fL (80.0-100.0); Monocytes % (auto) 5.3 % (0.0-12.0); Neutrophils # (auto) 14.4 10 ^3/uL (1.6-8.6); Neutrophils % (auto) 88.2 % (37.0-80.0); Red Blood Cells 2.43 10^6/uL (4.0-5.20); Red Cell Distribution Width 15.9 % (11.8-14.3); White Blood Cell 16.3 10^3/uL (4.4-10.8)
[2023-02-12 08:00] VITALS: PULSE 94; RESP 20
[2023-02-12 08:46] VITALS: BP 152/72; PULSE 94; RESP 20; TEMP 98.1; O2SAT 93
[2023-02-12] MEDS: FERROUS SULFATE 325mg EC TAB PO SCH ×3 (09:39→18:00)
[2023-02-12] MEDS: NICOTINE 14 MG/24HR TOPICAL PATCH TD SCH (09:42)
[2023-02-12] MEDS ORDERED: IPRATROPIUM BROM 0.5 MG/2.5ML INH SOL NEB PRN (10:00)
[2023-02-12] MEDS ORDERED: POTASSIUM CHL 20 Meq TABLET PO SCH (10:00)
[2023-02-12] MEDS ORDERED: FUROSEMIDE 40 MG/4 ML VIAL IV SCH (10:00)
[2023-02-12] MEDS ORDERED: ALBUTEROL SULF 2.5 MG/0.5ML(0.5%) NEB SOLN NEB PRN (10:00)
[2023-02-12] MEDS ORDERED: ALB5IS NEB (10:09)
[2023-02-12] MEDS ORDERED: FER325T PO (10:09)
[2023-02-12] MEDS ORDERED: POTA-220 PO (10:09)
[2023-02-12] MEDS ORDERED: ERGO1CAP23 PO (10:09)
[2023-02-12] MEDS ORDERED: ACET-1882 PO (10:09)
[2023-02-12] MEDS: SODIUM FERR GLUC 62.5MG/5ML 125 MG in SODIUM CHL 0.9% 100 ML IV SCH (12:00)
[2023-02-12 12:32] VITALS: BP 139/86; PULSE 100; RESP 18; TEMP 98.1; O2SAT 93
[2023-02-12 15:39] VITALS: BP 152/72; PULSE 94; RESP 20; TEMP 36.7; O2SAT 93
[2023-02-12 17:00] VITALS: BP 139/84; PULSE 100; RESP 18; TEMP 98.6; O2SAT 93
== END 2023-02-12 18:40 | disposition hospice, home (50) | DRG 533 ==
LOC: EDBD 11:04 → ER 11:04 → TELE 22:12 → TELE-CENTR 02-10 02:21 → CENTRAL 02-11 08:38
PROVIDERS: ADMIT Internal Medicine; ATTEND Internal Medicine
DX: S72.351A Displaced comminuted fracture of shaft of right femur, initial encounter for closed fracture (principal); G93.41 Metabolic encephalopathy; I50.33 Acute on chronic diastolic (congestive) heart failure; J18.9 Pneumonia, unspecified organism; R64 Cachexia; E87.1 Hypo-osmolality and hyponatremia; R65.10 Systemic inflammatory response syndrome (SIRS) of non-infectious origin without acute organ dysfunction; Z68.1 Body mass index [BMI] 19.9 or less, adult; J43.2 Centrilobular emphysema; Z66 Do not resuscitate; E87.6 Hypokalemia; E55.9 Vitamin D deficiency, unspecified; D64.9 Anemia, unspecified; F03.90 Unspecified dementia, unspecified severity, without behavioral disturbance, psychotic disturbance, mood disturbance, and anxiety; I35.0 Nonrheumatic aortic (valve) stenosis; W18.39XA Other fall on same level, initial encounter; D50.9 Iron deficiency anemia, unspecified; D63.8 Anemia in other chronic diseases classified elsewhere; Z96.641 Presence of right artificial hip joint; G89.29 Other chronic pain; F17.210 Nicotine dependence, cigarettes, uncomplicated; J84.10 Pulmonary fibrosis, unspecified; R29.6 Repeated falls; J43.9 Emphysema, unspecified; M81.0 Age-related osteoporosis without current pathological fracture; Z51.5 Encounter for palliative care; Z90.710 Acquired absence of both cervix and uterus; Z71.6 Tobacco abuse counseling; Y93.89 Activity, other specified; Y92.89 Other specified places as the place of occurrence of the external cause; Y99.8 Other external cause status
CPT/HCPCS: 36415; 70450; 71045; 71250; 73502; 73562; 73700; 80048; 80061; 81001; 82306; 82570; 82607; 82746; 83540; 83550; 83735; 83880; 83930; 83935; 84156; 84300; 84443; 85025; 85610; 85730; 87040; 93005; 93306; 97110; 97163; 97530; G0378; J2405; J3490